=== PATIENT | female | born 1985 ===

== ENCOUNTER → 2022-09-10 16:15 | Outpatient (CLI) | payer BC, SELFPAY ==
--- NOTE | ~2022-09-10 | US_ITS ---
US thyroid INDICATION: Thyroid goiter TECHNIQUE: Real-time sonographic images of the thyroid gland were obtained. COMPARISON: No prior studies for comparison. FINDINGS: The right thyroid lobe measures 5.4 x 1.8 x 1.5 cm. The left thyroid lobe measures 4.8 x 1 .8 x 1.5 cm. There is normal echotexture and echogenicity throughout the thyroid gland. No discrete n odules identified. Normal vascular flow is present. IMPRESSION: 1. Mildly enlarged thyroid without discrete nodule or abnormal vascularity. Reviewed, dictated and finalized at location A.
== END ==
PROVIDERS: PCP Physician Assistant; Visit Provider Physician Assistant
DX: E04.9 Nontoxic goiter, unspecified (principal)
CPT/HCPCS: 76536

== ENCOUNTER 2023-09-29 06:29 | Day surgery (SDC) | payer OTHER, SELFPAY ==
[2023-08-13 15:16] VITALS: BMI 30.7
[2023-09-18 13:17] VITALS: BMI 29.5
--- NOTE | 2023-09-28 12:45 | PM.HPGS ---
History of Present Illness History of Present Illness Consent: Risks, benefits, and alternatives have been discussed and questions answered. Patient agrees to proceed with procedure. Chief complaint: Family History of Colon Polyps Narrative: Leslie Mcleod is a 38 year old female Referred for colon cancer screening. She has a family history of polyps. Review of Systems Review of Systems: All systems reviewed & are unremarkable except as noted in HPI and below PMFSH Social History Social History Smoking status: Never smoker Alcohol intake: current Substance use: never Substance use type: does not use Living arrangements: with family Spiritual care concerns: No Meds Home Medications and Allergies Home Medications Medication Instructions Recorded Confirmed Type No Home Medications 09/17/23 09/29/23 History Allergies Allergy/AdvReac Type Severity Reaction Status Date / Time No Known Allergies Allergy Verified 09/29/23 07:02 Exam Resp: Auscultation: clear to auscultation bilaterally Cardio: Rate: regular rate Rhythm: regular rhythm GI: GI Palp: Yes Soft to palpation and No Tenderness to palpation present (GI) Assessment and Plan Assessment and plan (1) Family history of colonic polyps: Code(s): Z83.719 - Family history of colon polyps, unspecified Status: Acute Assessment and Plan: Colonoscopy with possible biopsy or polypectomy or cautery or injection of substances.
[2023-09-29 07:03] VITALS: BP 110/78; PULSE 93; RESP 15; TEMP 36.8; O2SAT 99
[2023-09-29] MEDS: LACTATED RINGERS 1,000 ML 150 ML IV CONT (07:05)
--- NOTE | 2023-09-29 08:21 | WPDANESEPPF ---
Anes - Initial Pre Proc Eval Procedure: Operation Date: 09/29/23 08:30 Proposed Procedures p Diagnostic Colonoscopy - Juan Manuel William MD Date/Time: 09/29/23 08:21 Surgeon: Juan Manuel William MD Pre Op Diagnosis: Family History of Colon Polyps Patient Data Age: 38 Gender: F Height: 1.73 m Weight: 90.9 kg Last Vital Signs Temp 36.8 C 09/29/23 07:03 Pulse 93 09/29/23 07:03 Resp 15 09/29/23 07:03 BP 110/78 09/29/23 07:03 Pulse Ox 99 09/29/23 07:03 O2 Del Method Room Air 09/29/23 07:03 Allergies Allergy/AdvReac Type Severity Reaction Status Date / Time No Known Allergies Allergy Verified 09/29/23 07:02 Home Medications Medication Instructions Recorded Confirmed Type No Home Medications 09/17/23 09/29/23 History Patient hx anesthesia problems: none Family hx anesthesia problems: none Results Review: All pre-operative results and documents have been reviewed as part of the pre-operative evaluation. [facility] Surgical History Surgical History (Updated 09/29/23 @ 08:21 by Seb Rosario MD) H/O breast augmentation Social History Social History Smoking status: Never smoker Alcohol intake: current Substance use: never Substance use type: does not use Living arrangements: with family Spiritual care concerns: No Anes - Eval Final PreProcedure Day of Procedure 09/29/23 08:21 Patient weight: obese Heart: regular rate and rhythm Lungs: clear to auscultation Airway: Mallampati scale class II Neurological: alert and oriented Last oral intake: >/= 8 hours ASA classification: II Emergent: no Anesthetic plan: proceed Anesthesia type and monitoring: general GIVS and standard monitoring Results Review: All pre-operative results and documents have been reviewed as part of the pre-operative evaluation. Informed Consent: The patient's anesthetic plan and its attendant risks and benefits were discussed with the patient/family/POA. Questions were solicited and answers provided to the satisfaction of the patient/family/POA.
[2023-09-29 08:42] VITALS: BP 103/79; PULSE 65; RESP 16; O2SAT 99
[2023-09-29 08:52] VITALS: BP 94/68; PULSE 72; RESP 18; O2SAT 99
--- NOTE | 2023-09-29 08:52 | WPDANESPN ---
Anes - Prog Note Post-Op Date/Time: 09/29/23 08:52 Cardiovascular status: normal Respiratory status: normal Airway patency: baseline Mental status: baseline Post-Op hydration status: normal Vital Signs: Last Vital Signs Temp 36.8 C 09/29/23 07:03 Pulse 93 09/29/23 07:03 Resp 15 09/29/23 07:03 BP 110/78 09/29/23 07:03 Pulse Ox 99 09/29/23 07:03 O2 Del Method Room Air 09/29/23 07:03 Pain Score (VAS): 0/10 I/O: Intake & Output 09/28/23 09/29/23 09/29/23 23:59 07:59 15:59 Intake Total 500 Balance 500 Patient Feedback: Patient satisfied with anesthetic care.
[2023-09-29 09:02] VITALS: BP 107/73; PULSE 70; RESP 18; O2SAT 100
== END 2023-09-29 09:11 | disposition home or self-care (01) ==
PROVIDERS: PCP Physician Assistant; Visit Provider Internal Medicine Gastroenterology
PROC: 0DJD8ZZ Inspection of Lower Intestinal Tract, Via Natural or Artificial Opening Endoscopic (ICD-10-PCS; CPT 45378; principal; 2023-09-29 08:30)
DX: Z83.718 Family history of other colon polyps (principal); Z12.11 Encounter for screening for malignant neoplasm of colon; K64.8 Other hemorrhoids
CPT/HCPCS: 45378